=== PATIENT | female | born 1965 | race American Indian/Alaskan Native ===

== ENCOUNTER 2016-06-04 16:02 | Outpatient (CLI) | payer OTHER ==
[2016-06-04 16:40] LABS: Hemoglobin 13.7 gm/dl (10.1-14.3); Mean Corpuscular HGB Conc 33 % (30-34); Mean Corpuscular Hemoglobin 30 pg (28-32); Mean Corpuscular Volume 90 fl (79-97); Platelet Count 299 K/mm3 (140-440); Red Blood Count 4.57 M/mm3 (3.65-5.03); Red Cell Distribution Width 14.9 % (13.2-15.2); White Blood Count 9.2 K/mm3 (4.5-11.0)
[2016-06-04 17:05] LABS: Alanine Aminotransferase 17 units/L (7-56); Albumin/Globulin Ratio 1.1 %; Alkaline Phosphatase 108 units/L (35-129); Anion Gap 16 mmol/L; BUN/Creatinine Ratio 16.25; Bilirubin,Total 0.2 mg/dL (0.1-1.2); Blood Urea Nitrogen 13 mg/dL (7-17); Calcium 8.9 mg/dL (8.4-10.2); Carbon Dioxide 27 mmol/L (22-30); Chloride 99.4 mmol/L (98-107); Glucose 121 mg/dL (65-100); Potassium 4.1 mmol/L (3.6-5.0); Sodium 138 mmol/L (137-145); Total Protein 7.7 g/dL (6.3-8.2)
== END 2016-06-04 16:03 | disposition home or self-care (01) ==
LOC: LAB 16:02
PROVIDERS: ATTEND Internal Medicine
DX: I10 Essential (primary) hypertension (principal); M32.10 Systemic lupus erythematosus, organ or system involvement unspecified; E87.2 Acidosis; R94.4 Abnormal results of kidney function studies
CPT/HCPCS: 36415; 80053; 82570; 84156; 85027

== ENCOUNTER 2017-11-27 12:35 | Outpatient (CLI) | payer OTHER ==
--- NOTE | 2017-11-27 13:52 | XRay Report ---
BILATERAL HIPS WITH PELVIS, 3 VIEWS: History: Pain. Lupus. Evaluate for AVN Findings: Bone mineralization is within normal limits. There is no evidence for fracture, dislocation or pelvic diastasis. Mild osteoarthritic changes are identified in both hips, right greater than left. No findings to suggest avascular necrosis. The soft tissues are unremarkable. Impression: Mild osteoarthritic changes, right greater than left. No evidence for avascular necrosis.
== END 2017-11-27 12:36 | disposition home or self-care (01) ==
LOC: XRAY 12:35
PROVIDERS: ATTEND Specialist
DX: M16.0 Bilateral primary osteoarthritis of hip (principal); I10 Essential (primary) hypertension; Z90.710 Acquired absence of both cervix and uterus
CPT/HCPCS: 73521

== ENCOUNTER 2018-04-20 13:44 | Outpatient (CLI) | payer OTHER ==
[2018-04-20 14:05] LABS: Hematocrit 39.5 % (30.3-42.9); Hemoglobin 13.3 gm/dl (10.1-14.3); Mean Corpuscular HGB Conc 34 % (30-34); Mean Corpuscular Volume 90 fl (79-97); Platelet Count 252 K/mm3 (140-440); Red Blood Count 4.38 M/mm3 (3.65-5.03); Red Cell Distribution Width 14.5 % (13.2-15.2)
[2018-04-20 14:32] LABS: Creatinine,Urine 173.4 mg/dL (0.1-20.0); Protein/Creatinine Ratio,Urine 0.1
[2018-04-20 14:54] LABS: Alanine Aminotransferase 9 units/L (7-56); Albumin 4.1 g/dL (3.9-5); BUN/Creatinine Ratio 13; Blood Urea Nitrogen 9 mg/dL (7-17); Calcium 8.7 mg/dL (8.4-10.2); Hemolysis Index 36
== END 2018-04-20 13:45 | disposition home or self-care (01) ==
LOC: LAB 13:44
PROVIDERS: ATTEND Internal Medicine
DX: R94.4 Abnormal results of kidney function studies (principal); I10 Essential (primary) hypertension; M32.10 Systemic lupus erythematosus, organ or system involvement unspecified; E87.2 Acidosis; Z90.710 Acquired absence of both cervix and uterus
CPT/HCPCS: 36415; 80053; 82570; 84156; 85027

== ENCOUNTER 2018-09-07 14:23 | Outpatient (CLI) | payer OTHER ==
[2018-09-07 14:55] LABS: Hematocrit 40.3 % (30.3-42.9); Hemoglobin 13.8 gm/dl (10.1-14.3); Mean Corpuscular HGB Conc 34 % (30-34); Mean Corpuscular Volume 92 fl (79-97); Platelet Count 242 K/mm3 (140-440); Red Blood Count 4.39 M/mm3 (3.65-5.03)
[2018-09-07 15:16] LABS: Alanine Aminotransferase 9 units/L (7-56); BUN/Creatinine Ratio 16; Blood Urea Nitrogen 11 mg/dL (7-17); Calcium 8.6 mg/dL (8.4-10.2); Hemolysis Index 3
[2018-09-07 15:31] LABS: Creatinine,Urine 181.8 mg/dL (0.1-20.0); Protein/Creatinine Ratio,Urine 0.07
== END 2018-09-07 14:24 | disposition home or self-care (01) ==
LOC: LAB 14:23
PROVIDERS: ATTEND Internal Medicine
DX: R94.4 Abnormal results of kidney function studies (principal); I10 Essential (primary) hypertension; Z90.710 Acquired absence of both cervix and uterus
CPT/HCPCS: 36415; 80053; 82570; 84156; 85027

== ENCOUNTER 2019-03-01 13:34 | Outpatient (CLI) | payer OTHER ==
[2019-03-01 14:10] LABS: Hematocrit 40.8 % (30.3-42.9); Hemoglobin 13.9 gm/dl (10.1-14.3); Mean Corpuscular HGB Conc 34 % (30-34); Mean Corpuscular Volume 92 fl (79-97); Platelet Count 246 K/mm3 (140-440); Red Blood Count 4.45 M/mm3 (3.65-5.03); Red Cell Distribution Width 14.6 % (13.2-15.2)
[2019-03-01 14:37] LABS: Albumin 3.9 g/dL (3.9-5); BUN/Creatinine Ratio 16; Blood Urea Nitrogen 13 mg/dL (7-17); Calcium 8.7 mg/dL (8.4-10.2); Hemolysis Index 131
[2019-03-01 14:42] LABS: Creatinine,Urine 100.1 mg/dL (0.1-20.0); Protein/Creatinine Ratio,Urine 0.06
[2019-03-01 14:46] LABS: Alanine Aminotransferase 14 units/L (7-56)
== END 2019-03-01 13:35 | disposition home or self-care (01) ==
LOC: LAB 13:34
PROVIDERS: ATTEND Internal Medicine
DX: R94.4 Abnormal results of kidney function studies (principal)
CPT/HCPCS: 36415; 80053; 82570; 84156; 85027